=== PATIENT | female | born 2000 | race American Indian/Alaskan Native ===

== ENCOUNTER 2021-07-20 05:21 | Emergency (ER) | payer SELFPAY ==
[2021-07-20 05:45] VITALS: BP 119/68
== END 2021-07-20 05:45 | disposition left against medical advice (07) ==
LOC: ED 05:21
DX: R07.0 Pain in throat (principal); Z53.21 Procedure and treatment not carried out due to patient leaving prior to being seen by health care provider

== ENCOUNTER 2022-01-02 14:52 | Emergency (ER) | payer SELFPAY ==
[2022-01-02 15:12] VITALS: BP 103/59
== END 2022-01-03 02:50 | disposition left against medical advice (07) ==
LOC: ED 14:52
DX: Z04.1 Encounter for examination and observation following transport accident (principal); Z53.21 Procedure and treatment not carried out due to patient leaving prior to being seen by health care provider